=== PATIENT | male | born 2000 | race Two or more races ===

== ENCOUNTER 2023-07-06 18:18 | Emergency (ER) | payer SELFPAY ==
[~2023-07-06] VITALS: Ht 167.6 cm; Wt 81.8 kg
[2023-07-06 19:05] LABS: BASOPHILS % (AUTO) 0.4 % (0.0-2.0); EOSINOPHILS % (AUTO) 0.4 % (1.0-6.0); HEMATOCRIT 39.9 % (41-53); HEMOGLOBIN 13.7 g/dL (13.5-17.5); LYMPHOCYTES # (AUTO) 2.7 K/uL (1.0-4.8); LYMPHOCYTES % (AUTO) 31.9 % (22.0-44.0); MEAN CORPUSCULAR HEMOGLOBIN 30.6 pg (26.0-34.0); MEAN CORPUSCULAR HGB CONC 34.3 G/dL (31.0-37.0); MEAN CORPUSCULAR VOLUME 89 fL (80-100); MONOCYTES # (AUTO) 0.6 K/uL (0.1-1.0); MONOCYTES % (AUTO) 6.8 % (2.0-9.0); NEUTROPHILS # (AUTO) 5.2 K/uL (1.8-7.7); NEUTROPHILS % (AUTO) 60.5 % (40.0-70.0); PLATELET COUNT (AUTO) 338 K/uL (150-450); RED BLOOD CELL COUNT(AUTO) 4.47 MIL/uL (4.50-5.90); RED CELL DISTRIBUTION WIDTH 13.3 % (11.5-14.5); WHITE BLOOD COUNT (AUTO) 8.6 K/uL (4.5-11.0)
[2023-07-06 19:10] LABS: ANION GAP 13 mmol/L (8-16); CALCIUM, TOTAL 9.5 mg/dL (8.8-10.5); CARBON DIOXIDE 26 mmol/L (22-29); CHLORIDE 104 mmol/L (98-107); CREATININE 0.79 mg/dL (0.60-1.30); GLOMERULAR FILTR. RATE CALC > 60 mL/min (>60); GLUCOSE,RANDOM 108 mg/dL (70-110); SODIUM SERUM 143 mmol/L (136-145); UREA NITROGEN, BLOOD 13 mg/dL (7-18)
[2023-07-06 19:20] LABS: ALCOHOL, BLOOD (SERUM) < 3 mg/dL (0-10); TROPONIN I-HIGH SENSITIVITY 4 ng/L (<76)
[2023-07-06 19:21] VITALS: BP 124/68; PULSE 89; RESP 18; TEMP 97.3
[2023-07-06 19:22] LABS: B-TYPE NATRIURETIC PEPTIDE < 5 pg/mL (0-100)
[2023-07-06 19:34] LABS: ALANINE AMINOTRANSFERASE 116 U/L (12-78); ALBUMIN 4.3 g/dL (3.4-5.0); ALKALINE PHOSPHATASE 91 U/L (46-116); ASPARTATE AMINOTRANSFERASE 40 U/L (15-37); BILIRUBIN,TOTAL 0.6 mg/dL (0.1-1.0); CREATINE KINASE, TOTAL ONLY 107 U/L (39-308)
== END 2023-07-06 22:31 | disposition home or self-care (01) ==
LOC: EMS 18:20
DX: R25.1 Tremor, unspecified (principal); F17.210 Nicotine dependence, cigarettes, uncomplicated; Z79.899 Other long term (current) drug therapy
CPT/HCPCS: 99284; 70450; 80053; 82550; 83880; 84484; 85025; 36415; 93005; G0480